=== PATIENT | female | born 1970 | race Caucasian/White ===

== ENCOUNTER → 2016-06-25 | Outpatient (CLI) | payer OTHER ==
--- NOTE | 2016-06-25 12:40 | US ---
EXAMINATION TYPE: US carotid duplex BILAT DATE OF EXAM: 06/25/2016 12:21 PM COMPARISON: NONE CLINICAL HISTORY: R03.0 elevated blood pressure. EXAM MEASUREMENTS: RIGHT: Peak Systolic Velocity (PSV) cm/sec ----- Right CCA: 91.7 ----- Right ICA: 76.7 ----- Right ECA: 122.2 ICA/CCA ratio: 0.8 RIGHT: End Diastole cm/sec ----- Right CCA: 26.0 ----- Right ICA: 37.0 ----- Right ECA: 20.4 LEFT: Peak Systolic Velocity (PSV) cm/sec ----- Left CCA: 91.7 ----- Left ICA: 63.9 ----- Left ECA: 76.2 ICA/CCA ratio: 0.7 LEFT: End Diastole cm/sec ----- Left CCA: 31.1 ----- Left ICA: 17.2 ----- Left ECA: 20.2 VERTEBRALS (direction of flow): Right Vertebral: Antegrade Left Vertebral: Antegrade FINDINGS: Mild intimal wall thickening is noted at bilateral carotid bifurcation and PSV is wnl. High bifurcati on is noted Left carotid system. IMPRESSION: 1. No significant hemodynamic stenosis. Criteria for Assigning % of Stenosis / Diameter reduction (Estimation based on the indirect measurements of the internal carotid artery velocities (ICA PSV). 1. Normal (no stenosis)=ICA PSV < 125 cm/s: ratio < 2.0: ICA EDV<40 cm/s. 2. Less than 50% stenosis=ICA PSV < 125 cm/s: ratio < 2.0: ICA EDV<40 cm/s. 3. 50 to 69% stenosis=ICA PSV of 125 to 230 cm/s: ration 2.0 ? 4.0: ICA EDV 40-100 cm/s. 4. Greater than 70% stenosis to near occlusion= ICA PSV > 230 cm/s: ratio > 4.0: ICA EDV > 100 cm/s. 5. Near occlusion= ICA PSV velocities may be low or undetectable: variable ratio and ICA EDV. 6. Total occlusion=unable to detect flow.
--- NOTE | 2016-06-26 11:33 | EST ---
DATE OF SERVICE: 06/25/2016 AGE: 45Y SEX: F HT: 62 WT: 174 lbs. Protocol Rowdy: X Other: Stage: III Dur. of Exercise: 7 minutes *Heart Rate Blood Pressure *Rest: 103 Rest: 152/107 * *Max. Achieved: 164 Maximum BP: 176/100 85% PMHR: 149 100% PMHR: 175 *METS: 7.5 INDICATION OF THE STUDY: Chest pain. MEDICATIONS: STRESS DATA: Pretesting physical examination showed heart rate of 103, pressure is 152/107 mmHg. Baseline EKG showed sinus mechanism. The patient exercised on the treadmill according to Rowdy protocol for a total 7 minutes and achieved 7.5 METs. Max heart rate was 164, which is about 85% of maximum predicted heart rate. Maximum blood pressure was 176/100 mmHg. Clinically, the patient did not have any symptoms of chest pain or discomfort. The EKG did not show any ST or T wave abnormalities consistent with ischemia. CONCLUSION: 1. Good exercise capacity. 2. Normal EKG in response to exercise.
== END | disposition home or self-care (01) ==
LOC: RADNMMAIN 11:18
PROVIDERS: ATTEND Family Medicine
DX: R03.0 Elevated blood-pressure reading, without diagnosis of hypertension (principal)
CPT/HCPCS: 93017; 93880